=== PATIENT | female | born 1960 | race Caucasian/White ===

== ENCOUNTER 2018-11-26 21:13 | Emergency (ER) | payer OTHER ==
[~2018-11-26] VITALS: Ht 170.2 cm; Wt 65.8 kg
[2018-11-26 21:26] VITALS: BP_SYST 105
[2018-11-26 23:12] VITALS: BP_SYST 110
== END 2018-11-26 23:12 | disposition home or self-care (01) ==
LOC: SED 21:13
DX: R00.2 Palpitations (principal); R03.0 Elevated blood-pressure reading, without diagnosis of hypertension; Z88.5 Allergy status to narcotic agent
CPT/HCPCS: 93005; 99283